=== PATIENT | female | born 1985 | race Caucasian/White ===

== ENCOUNTER 2017-12-23 12:04 | Emergency (ER) | payer OTHER ==
[~2017-12-23] VITALS: Ht 175.3 cm; Wt 61.2 kg
[2017-12-23 12:12] VITALS: BP 131/74; Ht 175.3 cm; Wt 61.2 kg
== END 2017-12-23 13:42 | disposition home or self-care (01) ==
LOC: ED 12:04
DX: S31.823A Puncture wound without foreign body of left buttock, initial encounter (principal); W54.0XXA Bitten by dog, initial encounter; Y93.01 Activity, walking, marching and hiking; Y92.218 Other school as the place of occurrence of the external cause; Y99.8 Other external cause status